=== PATIENT | male | born 1960 | race Caucasian/White ===

== ENCOUNTER → 2020-12-13 | Emergency (ER) | payer OTHER ==
[~2020-12-13] VITALS: Ht 182.9 cm; Wt 91.8 kg
[2020-12-13 01:43] VITALS: BP 122/68
[2020-12-13 04:33] LABS: BASOPHILS # (AUTO) 0.1 X10'3 (0-0.2); BASOPHILS % (AUTO) 1.1 % (0-1); EOSINOPHILS # (AUTO) 0.3 X10'3 (0-0.9); EOSINOPHILS % (AUTO) 3.7 % (0-6); HEMATOCRIT 41.9 % (42.0-52.0); HEMOGLOBIN 14.2 g/dl (14.0-17.9); LYMPHOCYTES # (AUTO) 1.6 X10'3 (1.1-4.8); MEAN CORPUSCULAR VOLUME 91.1 FL (78-98); MEAN PLATELET VOLUME 8.3 FL (7.4-10.4); MONOCYTES # (AUTO) 0.7 X10'3 (0-0.9); MONOCYTES % (AUTO) 8.4 % (2-12); NEUTROPHILS # (AUTO) 5.1 X10'3 (1.8-7.7); NEUTROPHILS % (AUTO) 65.8 % (42-75); PLATELET COUNT 275 X10'3 (140-440); RED CELL DISTRIBUTION WIDTH 13.2 % (11.5-14.5); WHITE BLOOD COUNT 7.8 X10'3 (4.5-11.0)
[2020-12-13 04:35] LABS: ALBUMIN 3.2 G/DL (3.4-5.0); ANION GAP 4 (8-16); BLOOD UREA NITROGEN 8 MG/DL (7-18); BUN/CREATININE RATIO 5.7 (5.4-32.0); CALCIUM 8.3 MG/DL (8.5-10.1); CHLORIDE 107 MMOL/L (99-107); CREATININE 1.41 MG/DL (0.60-1.10); GLUCOSE 113 MG/DL (70-104); POTASSIUM 3.9 MMOL/L (3.5-5.1); SODIUM 141 MMOL/L (135-145); TOTAL CARBON DIOXIDE 30.1 MMOL/L (24-32); eGFR 51 ML/MIN
[2020-12-13 04:44] LABS: PARTIAL THROMBOPLASTIN TIME 27 SECONDS (22-32)
== END | disposition home or self-care (01) ==
LOC: ER 01:35
DX: R60.0 Localized edema (principal)
CPT/HCPCS: 36415; 71045; 80048; 85025; 85610; 85730; 93971; 99285

== ENCOUNTER 2023-06-20 12:27 | Emergency (ER) | payer MEDICARE, MEDICAID ==
[~2023-06-20] VITALS: Ht 182.9 cm; Wt 89.6 kg
[2023-06-20 12:58] VITALS: BP 128/89; PULSE 77; RESP 18; TEMP 98; O2SAT 97
[2023-06-20] MEDS ORDERED: HYDR-3965 PO (13:55)
[2023-06-20] MEDS ORDERED: SULF1TAB48 PO (13:58)
== END 2023-06-20 15:16 | disposition home or self-care (01) ==
LOC: ER 12:27
DX: L02.411 Cutaneous abscess of right axilla (principal); R59.1 Generalized enlarged lymph nodes
CPT/HCPCS: 99283

== ENCOUNTER 2023-06-26 12:45 | Emergency (ER) | payer MEDICARE, MEDICAID ==
[~2023-06-26] VITALS: Ht 193 cm; Wt 84.1 kg
[~2023-06-26 12:45] MED LIST: HYDR-3965 PO; SULF1TAB48 PO
[2023-06-26 12:51] VITALS: BP 145/75; PULSE 73; RESP 20; TEMP 98.1; O2SAT 95
[2023-06-26] MEDS: LIDOcaine 1% W/epiNEPHrine 1:100,000 20ml vial IJ ONE (13:56)
[2023-06-26] MEDS ORDERED: tetanus & diphtheria toxoid (Td) vaccine 0.5ml IMVAC ONE (14:05)
[2023-06-26] MEDS: TETanus/Pertussis (Acell)/Diphther VAC/PF (Tdap-Adult) 0.5ml syringe IMVAC ONE (14:27)
== END 2023-06-26 17:12 | disposition home or self-care (01) ==
LOC: ER 12:45
DX: L02.411 Cutaneous abscess of right axilla (principal)
CPT/HCPCS: 10060; 87070; 90471; 90715; 99283; J7030; 87077; 87186; A6449

== ENCOUNTER 2023-06-28 14:50 | Emergency (ER) | payer MEDICARE, MEDICAID ==
[~2023-06-28] VITALS: Ht 182.9 cm; Wt 89.4 kg
[~2023-06-28 14:50] MED LIST changes: -HYDR-3965 PO
[2023-06-28 15:23] VITALS: BP 130/79; PULSE 56; RESP 18; TEMP 97.5; O2SAT 98
[2023-06-28] MEDS ORDERED: CLIN300C54 PO (17:30)
== END 2023-06-28 17:38 | disposition home or self-care (01) ==
LOC: ER 14:50
DX: L02.411 Cutaneous abscess of right axilla (principal); Z79.899 Other long term (current) drug therapy
CPT/HCPCS: 99283

== ENCOUNTER 2023-07-13 23:03 | Emergency (ER) | payer MEDICARE, MEDICAID ==
[~2023-07-13] VITALS: Ht 182.9 cm; Wt 94.5 kg
[2023-07-13 23:43] VITALS: BP 123/67; PULSE 82; TEMP 97.5
[2023-07-14] MEDS ORDERED: FURO-150 PO (03:49)
[2023-07-14] MEDS: furosemide 10 MG/1 ML 10ml inj IM ONE (04:02)
[2023-07-14 04:22] VITALS: RESP 16; O2SAT 98
== END 2023-07-14 04:22 | disposition home or self-care (01) ==
LOC: ER 23:04
DX: R60.0 Localized edema (principal); Z79.899 Other long term (current) drug therapy
CPT/HCPCS: 96372; 99283; J1940

== ENCOUNTER 2023-07-16 03:08 | Emergency (ER) | payer MEDICARE, MEDICAID ==
[~2023-07-16] VITALS: Ht 182.9 cm; Wt 94.5 kg
[~2023-07-16 03:08] MED LIST changes: +FURO-150 PO; -SULF1TAB48 PO
[2023-07-16 07:03] LABS: BASOPHILS % (AUTO) 0.9 % (0-1); EOSINOPHILS # (AUTO) 0.2 X10'3 (0-0.9); EOSINOPHILS % (AUTO) 3.7 % (0-6); HEMATOCRIT 40.6 % (42.0-52.0); HEMOGLOBIN 14.1 g/dl (14.0-17.9); LYMPHOCYTES # (AUTO) 1.3 X10'3 (1.1-4.8); LYMPHOCYTES % (AUTO) 23.7 % (21-51); MEAN CORPUSCULAR HEMOGLOBIN 31.5 PG (27.0-31.0); MEAN CORPUSCULAR HGB CONC 34.7 g/dL (33.0-36.5); MEAN CORPUSCULAR VOLUME 90.7 FL (78-98); MEAN PLATELET VOLUME 8.5 FL (7.4-10.4); MONOCYTES # (AUTO) 0.5 X10'3 (0-0.9); MONOCYTES % (AUTO) 10.1 % (2-12); NEUTROPHILS # (AUTO) 3.3 X10'3 (1.8-7.7); NEUTROPHILS % (AUTO) 61.6 % (42-75); PLATELET COUNT 199 X10'3 (140-440); RED BLOOD COUNT 4.47 X10'6 (4.70-6.10); RED CELL DISTRIBUTION WIDTH 12.8 % (11.5-14.5); WHITE BLOOD COUNT 5.4 X10'3 (4.5-11.0)
[2023-07-16 07:19] VITALS: BP 91/61; PULSE 64; RESP 16; TEMP 97.8; O2SAT 98
[2023-07-16 07:20] LABS: D-DIMER 0.44 MG/L FEU (0-0.50)
[2023-07-16] MEDS: sulfamethoxazole/trimethoprim DS (800/160mg) tablet PO ONE (07:26)
[2023-07-16] MEDS: amox tr/potassium clavulanate 875/125mg TAB PO ONE (07:26)
[2023-07-16 07:45] LABS: ALBUMIN 3.1 G/DL (3.4-5.0); ANION GAP 4 (8-16); BLOOD UREA NITROGEN 14 MG/DL (7-18); BUN/CREATININE RATIO 11.9 (10.0-20.0); CALCIUM 8.4 MG/DL (8.5-10.1); CHLORIDE 106 MMOL/L (99-107); CREATININE 1.18 MG/DL (0.60-1.10); GLUCOSE 99 MG/DL (70-104); PRO BRAIN NATRIURETIC PEPTIDE 108 PG/ML (0-125); SODIUM 142 MMOL/L (135-145); TOTAL CARBON DIOXIDE 32.4 MMOL/L (24-32); eCRCL 69 ML/MIN; eGFR 62 ML/MIN
[2023-07-16] MEDS ORDERED: SULF1TAB49 PO (08:40)
[2023-07-16] MEDS ORDERED: CEPH-585 PO (08:40)
== END 2023-07-16 09:58 | disposition home or self-care (01) ==
LOC: ER 03:09
DX: L03.116 Cellulitis of left lower limb (principal); L03.115 Cellulitis of right lower limb; R06.00 Dyspnea, unspecified; Z79.899 Other long term (current) drug therapy; Z79.2 Long term (current) use of antibiotics
CPT/HCPCS: 36415; 71045; 80048; 83880; 84484; 85025; 85379; 93005; 99285

== ENCOUNTER 2023-11-03 05:59 | Emergency (ER) | payer BC, MEDICAID, MEDICARE ==
[~2023-11-03] VITALS: Ht 182.9 cm; Wt 94.5 kg
[2023-11-03 07:53] LABS: BASOPHILS % (AUTO) 0.8 % (0-1); EOSINOPHILS # (AUTO) 0.1 X10'3 (0-0.9); EOSINOPHILS % (AUTO) 2.2 % (0-6); HEMATOCRIT 43.2 % (42.0-52.0); HEMOGLOBIN 14.7 g/dl (14.0-17.9); LYMPHOCYTES # (AUTO) 1.6 X10'3 (1.1-4.8); LYMPHOCYTES % (AUTO) 25.2 % (21-51); MEAN CORPUSCULAR HEMOGLOBIN 30.9 PG (27.0-31.0); MEAN CORPUSCULAR HGB CONC 34.1 g/dL (33.0-36.5); MEAN CORPUSCULAR VOLUME 90.6 FL (78-98); MEAN PLATELET VOLUME 8.9 FL (7.4-10.4); MONOCYTES # (AUTO) 0.8 X10'3 (0-0.9); NEUTROPHILS # (AUTO) 3.8 X10'3 (1.8-7.7); NEUTROPHILS % (AUTO) 59.8 % (42-75); PLATELET COUNT 178 X10'3 (140-440); RED BLOOD COUNT 4.77 X10'6 (4.70-6.10); RED CELL DISTRIBUTION WIDTH 13.4 % (11.5-14.5); WHITE BLOOD COUNT 6.3 X10'3 (4.5-11.0)
[2023-11-03 08:05] LABS: ALANINE AMINOTRANSFERASE 63 U/L (12-78); ALBUMIN 3.4 G/DL (3.4-5.0); ALBUMIN/GLOBULIN RATIO 1.1 (1.1-1.5); ALKALINE PHOSPHATASE 57 IU/L (46-116); ANION GAP 7 (8-16); ASPARTATE AMINO TRANSFERASE 39 U/L (10-37); BILIRUBIN,TOTAL 0.8 MG/DL (0.1-1.0); BLOOD UREA NITROGEN 26 MG/DL (7-18); BUN/CREATININE RATIO 19.8 (10.0-20.0); CALCIUM 8.8 MG/DL (8.5-10.1); CHLORIDE 105 MMOL/L (99-107); CREATININE 1.31 MG/DL (0.60-1.10); GLUCOSE 99 MG/DL (70-104); POTASSIUM 3.6 MMOL/L (3.5-5.1); SODIUM 139 MMOL/L (135-145); TOTAL CARBON DIOXIDE 26.8 MMOL/L (24-32); TOTAL PROTEIN 6.4 G/DL (6.4-8.2); eCRCL 62 ML/MIN; eGFR 55 ML/MIN
[2023-11-03 08:14] LABS: PRO BRAIN NATRIURETIC PEPTIDE 180 PG/ML (0-125)
[2023-11-03] MEDS ORDERED: SULF1TAB49 PO (10:21)
[2023-11-03] MEDS ORDERED: HYDR-3965 PO (10:21)
[2023-11-03 10:40] VITALS: BP 122/74; PULSE 66; RESP 14; TEMP 98.2; O2SAT 98
== END 2023-11-03 10:42 | disposition home or self-care (01) ==
LOC: ER 05:59
DX: R59.1 Generalized enlarged lymph nodes (principal); R60.0 Localized edema; L02.416 Cutaneous abscess of left lower limb; L02.415 Cutaneous abscess of right lower limb; L03.116 Cellulitis of left lower limb; L03.115 Cellulitis of right lower limb; F12.90 Cannabis use, unspecified, uncomplicated; F32.A Depression, unspecified; Z79.899 Other long term (current) drug therapy
CPT/HCPCS: 36415; 80053; 83880; 84484; 85025; 99283

== ENCOUNTER 2023-11-05 08:48 | Emergency (ER) | payer BC ==
[~2023-11-05] VITALS: Ht 182.9 cm; Wt 90.9 kg
[~2023-11-05 08:48] MED LIST changes: -FURO-150 PO; +HYDR-3965 PO; +SULF1TAB49 PO
[2023-11-05 09:18] LABS: BASOPHILS # (AUTO) 0.1 X10'3 (0-0.2); BASOPHILS % (AUTO) 0.8 % (0-1); EOSINOPHILS % (AUTO) 0.5 % (0-6); HEMATOCRIT 42.1 % (42.0-52.0); HEMOGLOBIN 14.6 g/dl (14.0-17.9); LYMPHOCYTES % (AUTO) 10.3 % (21-51); MEAN CORPUSCULAR HEMOGLOBIN 30.7 PG (27.0-31.0); MEAN CORPUSCULAR HGB CONC 34.7 g/dL (33.0-36.5); MEAN CORPUSCULAR VOLUME 88.5 FL (78-98); MEAN PLATELET VOLUME 8.7 FL (7.4-10.4); MONOCYTES # (AUTO) 1.1 X10'3 (0-0.9); MONOCYTES % (AUTO) 11.4 % (2-12); NEUTROPHILS # (AUTO) 7.7 X10'3 (1.8-7.7); PLATELET COUNT 239 X10'3 (140-440); RED BLOOD COUNT 4.76 X10'6 (4.70-6.10); RED CELL DISTRIBUTION WIDTH 13.2 % (11.5-14.5)
[2023-11-05] MEDS: LORazepam 1 MG tablet PO ONE (09:38)
[2023-11-05 09:39] LABS: ALBUMIN 3.7 G/DL (3.4-5.0); ANION GAP 12 (8-16); BLOOD UREA NITROGEN 20 MG/DL (7-18); BUN/CREATININE RATIO 11.1 (10.0-20.0); CALCIUM 8.9 MG/DL (8.5-10.1); CHLORIDE 104 MMOL/L (99-107); ETHANOL < 10 MG/DL (<10); GLUCOSE 175 MG/DL (70-104); POTASSIUM 3.1 MMOL/L (3.5-5.1); PRO BRAIN NATRIURETIC PEPTIDE 420 PG/ML (0-125); SODIUM 140 MMOL/L (135-145); TOTAL CARBON DIOXIDE 23.8 MMOL/L (24-32); eCRCL 45 ML/MIN; eGFR 38 ML/MIN
[2023-11-05] MEDS ORDERED: SULF1TAB45 PO (09:50)
[2023-11-05 10:30] LABS: BILIRUBIN,URINE SMALL (Neg); CLARITY,URINE CLEAR (Clear); GLUCOSE, URINE 100 mg/dl (Neg); KETONES,URINE TRACE mg/dl (Neg); LEUKOCYTE ESTERASE ,URINE NEGATIVE (Neg); NITRITES, URINE NEGATIVE (Neg); OCCULT BLOOD,URINE TRACE-INTACT (Neg); PH,URINE 5.5 (4.8-8.0); PROTEIN,URINE TRACE mg/dl (Neg)
[2023-11-05] MEDS ORDERED: SULF1TAB49 PO (10:36)
[2023-11-05 10:37] LABS: COLOR,URINE DARK YELLOW (Yellow); UA COLLECTION TYPE NON-SPECIFIED
[2023-11-05 10:38] LABS: BACTERIA,URINE FEW /HPF (Neg)
[2023-11-05 10:39] LABS: MUCUS STRANDS MODERATE /LPF (Neg); SQUAMOUS EPITHELIAL CELL,UR FEW /LPF (FEW)
[2023-11-05 10:59] LABS: URINE AMPHETAMINE SCREEN POSITIVE (Neg); URINE BARBITUATE SCREEN NEGATIVE (Neg); URINE BENZODIAZEPINES SCREEN NEGATIVE (Neg); URINE CANNABINOID SCREEN NEGATIVE (Neg); URINE COCAINE SCREEN NEGATIVE (Neg); URINE METHADONE SCREEN NEGATIVE (Neg); URINE OPIATE SCREEN POSITIVE (Neg); URINE PHENCYCLIDINE SCREEN NEGATIVE (Neg)
[2023-11-05] MEDS: potassium chloride 10mEq ER tablet PO ONE (14:27)
[2023-11-05] MEDS: hydrOXYzine 25 MG tablet PO PRN (15:02)
[2023-11-05] MEDS: sulfamethoxazole/trimethoprim DS (800/160mg) tablet PO SCH (20:01)
[2023-11-06] MEDS: LORazepam 1 MG tablet PO ONE (04:44)
[2023-11-06] MEDS: magnesium Cl slow-release 64mg tablet PO ONE (04:44)
[2023-11-06 09:46] VITALS: BP 129/79; PULSE 78; RESP 16; TEMP 98.2; O2SAT 99
== END 2023-11-06 09:53 | disposition home or self-care (01) ==
LOC: ER 08:48
DX: R45.851 Suicidal ideations (principal); Z79.899 Other long term (current) drug therapy; Z20.822 Contact with and (suspected) exposure to COVID-19
CPT/HCPCS: 36415; 71045; 80048; 80305; 80320; 81001; 83880; 84484; 85025; 87088; 87811; 93005; 99285; Q0177

== ENCOUNTER 2025-03-09 06:40 | Emergency (ER) | payer MEDICARE, MEDICAID ==
[~2025-03-09] VITALS: Ht 182.9 cm; Wt 91.0 kg
[~2025-03-09 06:40] MED LIST changes: -HYDR-3965 PO
--- NOTE | 2025-03-09 07:31 | RADIOLOGY REPORT ---
CLINICAL INDICATION: fall, hip pain TECHNIQUE: DI HIP UNILATERAL 2 VIEWS Comparison: None FINDINGS/IMPRESSION: : There is no evidence of acute fracture or dislocation. Soft tissues are unremarkable. 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
--- NOTE | 2025-03-09 08:29 | Physician Documentation ---
History of Present Illness ~ Chief Complaint: Hip pain Stated Complaint: L HIP PAIN FROM FALL Time Seen by MD: 06:46 Primary Medical Doctor: [facility] HPI 64 year old male using toilet today and got up, almost passed out and fell over. Reports L hip pain. Denies other injury, fever, N/V/D, shortness of breath Tetanus within 5 Years?: Yes Medication Reconciliation Allergies: Coded Allergies: No Known Allergies (Unverified , 03/09/25) Scheduled Sulfamethoxazole/Trimethoprim (Bactrim Ds Tablet), 1 TAB PO Q12H, (Reported) Past Medical History Past Medical History: No Pertinent History Past Surgical History: noncontributory Alcohol Use: None Drug Use: none Review of Systems All Other Systems at this time: Reviewed and Negative Physical Exam Vital Signs: RN Vital Signs have been reviewed: Yes, Temperature: 98.8, Source: Oral, Heart Rate: 66, Respiratory Rate: 18, BP: 111/84, Pulse Oximetry: 100, Weight: 91.000 Oxygen Flow Rate: 0 Physical Exam Gen: no distress HEENT: NCAT, EOMI, PERRL, MMM Pulm: no distress Cardiac: deferred Abdomen: soft, NT, ND MSK: no deformity; +TTP L hip Neuro: nonfocal Skin: w/d/i Psych: unremarkable Progress Results/Orders Results/Orders Orders - MALIHA LUJAN MD Hip Unilateral 2 Views (03/09/25 06:47) Completed Orders - MALIHA LUJAN MD Hip Unilateral 2 Views (03/09/25 06:47) Vital Signs 03/09/25 03/09/25 03/09/25 03/09/25 06:42 07:10 08:04 08:52 Temp 98.8 Pulse 74 69 66 69 Resp 20 18 18 18 B/P (MAP) 124/64 150/76 (100) 111/84 (93) 133/70 (91) Pulse Ox 99 100 100 97 O2 Flow Rate 0 0 0 0 03/09/25 09:12 Temp 98.8 B/P (MAP) Medical Decision Making Additional information obtaine: N/A Findings 64 year old male s/p ground level fall in bathroom. Xray pelvis interpreted by me demonstrated no fractures, dislocation, or acute injuries. Will road test and dispo with return precautions, fall precaution. Differential Dx:Considerations: Include: Fracture(s), Abrasion(s), Contusion(s), Foreign body(s), Hematoma(s), Laceration(s), Encephalopathy Departure Disposition: 01 HOME / SELF CARE / HOMELESS Impression: Primary Impression: Hip pain Condition: Stable Discharge Instructions: Contusion (Bruise) Referrals: NO PRIMARY CARE PROVIDER (PCP) Education Educated: Patient Educated regarding: diagnosis, treatment, prognosis, need for follow up Signature Scribe Signature: . Attestation: . MALIHA LUJAN MD Mar 09, 2025 08:29
[2025-03-09 08:52] VITALS: BP 133/70; PULSE 69; RESP 18; O2SAT 97
[2025-03-09 09:12] VITALS: TEMP 98.8
== END 2025-03-09 09:17 | disposition home or self-care (01) ==
LOC: ER 06:42
DX: M25.552 Pain in left hip (principal); Z79.899 Other long term (current) drug therapy; W18.39XA Other fall on same level, initial encounter; Y93.89 Activity, other specified; Y92.89 Other specified places as the place of occurrence of the external cause; Y99.8 Other external cause status
CPT/HCPCS: 73502; 99283